=== PATIENT | male | born 1985 | race Caucasian/White ===

== ENCOUNTER 2017-02-06 17:47 | Emergency (ER) | payer SELFPAY ==
--- NOTE | ~2017-02-06 | ER ---
PATIENT'S NAME: TAMIR PERES [facility] AGE: 31 Y [address] ROOM: [place] [address] LOCATION: [facility] ADMIT DATE: 02/06/2017 ER/Outpatient Report DISCHARGE DATE: 02/06/2017 FAMILY PHYSICIAN: PHYSICIAN, NO ATTENDING PHYSICIAN: Farhan Rodriguez Time of Arrival: 1747 hours. Time of Evaluation: 1750 hours. CHIEF COMPLAINT: Chest discomfort. HISTORY OF PRESENT ILLNESS: This is a 31-year-old male, who presents to the ER. He states he has had some chest discomfort on the right side of his chest for about 3 hours and it worsened in the last couple of hours. He states that he has also been dealing with diarrhea and he has had approximately 10 stools today. He states that he has had no vomiting, but does feel a little bit nauseated. He states yesterday he felt sweaty, but he thought may be it was due to his stomach not feeling well. He states that he was recently admitted to the psych fowler at [facility] last week and they did do some medication adjustments. His girlfriend states that he does have a history of anxiety and he was dealing with some stressful situation prior to his chest discomfort as well so she thinks he is probably having an anxiety attack with this. The patient denies any recent antibiotics or recent travel. He denies any other problems at this time. MEDICATIONS: Please see medication list in nurse's notes. PAST MEDICAL HISTORY: 1. Hiatal hernia. 2. Fatty liver disease. 3. He has had a blockage in his large intestine. SOCIAL HISTORY: Smokes half pack a day. He has smoked for 20 years. He stopped doing street drugs and alcohol 3 years ago in which he did methamphetamines and marijuana. REVIEW OF SYSTEMS: A 10-point review of systems was completed and it was negative with the exception of those discussed in the HPI. PHYSICAL EXAMINATION: VITAL SIGNS: Weight 219.8 kg taken, blood pressure is 157/93, pulse 101, PATIENT'S NAME: TAMIR PERES [facility] AGE: 31 Y [address] ROOM: [place] [address] LOCATION: [facility] ADMIT DATE: 02/06/2017 ER/Outpatient Report DISCHARGE DATE: 02/06/2017 FAMILY PHYSICIAN: PHYSICIAN, NO ATTENDING PHYSICIAN: Farhan Rodriguez respirations 25, temperature 98.5 degrees tympanically, saturations 96% on room air. [place] Coma Score is 15. GENERAL: Alert, morbidly obese male, in no acute distress. HEENT: Head: Normocephalic. Eyes: Pupils are equal and reactive to light. He does display moist mucous membranes. LUNGS: Clear to auscultation bilaterally. No wheezes or crackles. Normal respiratory effort. HEART: Slightly tachycardic. Normal rhythm. No lifts, thrills, or murmurs. ABDOMEN: Soft, it is nontender. He has good bowel sounds throughout. No masses were palpated. EXTREMITIES: No clubbing, cyanosis, or edema. He has full range of motion of all limbs. SKIN: Warm, dry, and intact. LABORATORY DATA: CBC: White count is 10.8, hemoglobin is 15.5, platelets 189. AST is 9.2, INR is 1.0. CMS was unremarkable. Magnesium is 1.8, CPK is 112, CK-MB is 1.5. Troponin I is less than 0.040. Second set of enzymes, CPK is 95, CK-MB is 1.2. Troponin I is less than 0.040. EKG shows sinus tachycardia with a right bundle branch block. We did have EKGs sent from [facility] and it also shows that he has a right bundle branch block. Chest x-ray was negative for any infiltrate. IMPRESSION: 1. Chest discomfort. 2. Diarrhea. 3. Anxiety. 4. He had a headache while he was here. ASSESSMENT AND PLAN: We did monitor the patient here for quite some time. We did give him an aspirin upon his arrival. The patient rested comfortably and we did give him a GI cocktail and 30 mg of Toradol through his IV, which did improve his pain. The patient will be dismissed home. He needs to monitor his symptoms closely and continue to push fluids. I would like him to follow up with primary care physician or seek help at [facility] in [facility] for followup care in the next 2-3 days. He should return here to the emergency room if any of the symptoms worsen. The patient and the patient's understand and agree with care. CELESTINA LENNON PA-C FOR FARHAN RODRIGUEZ DO PATIENT'S NAME: TAMIR PERES [facility] AGE: 31 Y [address] ROOM: [place] [address] LOCATION: [facility] ADMIT DATE: 02/06/2017 ER/Outpatient Report DISCHARGE DATE: 02/06/2017 FAMILY PHYSICIAN: SAMUEL MARTINEZ ATTENDING PHYSICIAN: Farhan Rodriguez/kathia /[id number] d: t: 02/15/17 123, OUTPATIENT REPORT
[~2017-02-06 17:47] MED LIST: PROTONIX20 MG PO; VISTARIL25 MG PO; ZOLOFT50 MG PO
[2017-02-06 18:10] LABS: BASOPHIL % 0.4 %; EOSINOPHIL # 0.2 K/uL (0.0-0.5); EOSINOPHIL % 1.9 %; HEMATOCRIT 46.8 % (37.0-53.0); HEMOGLOBIN 15.5 g/dL (12.0-17.0); IMMATURE GRANULOCYTE % 0.4 %; LYMPHOCYTE # 0.9 K/uL (0.8-4.0); MCH 28.9 pg (27.0-34.0); MCHC 33.1 gm/dL (32.0-36.5); MCV 87.2 fl (83.0-98.0); MONOCYTE # 0.5 K/uL (0.0-1.0); MONOCYTE % 4.3 %; MPV 9.6 fl (9.4-12.4); NEUTROPHIL # (ANC) 9.2 K/uL (1.4-9.0); NRBC % 0 /100WBC (0-0.00); PLATELET COUNT 189 K/uL (150-450); RBC 5.37 M/uL (4.00-6.00); RDW-CV 14.3 % (11.9-14.6); WBC 10.8 K/uL (4.0-11.0)
[2017-02-06 18:20] LABS: PTT 27 SECONDS (25-32)
[2017-02-06 18:29] LABS: ALK PHOS 90 IU/L (33-138); ALT 52 IU/L (12-78); ANION GAP 12.2 (10.0-19.0); AST 24 IU/L (10-40); BLOOD UREA NITROGEN 16 mg/dL (6-24); CALCIUM 8.9 mg/dL (8.5-10.5); CHLORIDE 105 mMol/L (96-110); CO2 28 mMol/L (22-32); CPK 112 IU/L (35-332); CREATININE 0.9 mg/dL (0.6-1.3); ESTIMATED GFR (MDRD EQUATION) > 60; MAGNESIUM 1.8 mg/dL (1.3-2.6); POTASSIUM 4.2 mMol/L (3.7-5.1); SODIUM 141 mMol/L (135-145); TOTAL PROTEIN 8.2 g/dL (6.0-8.4)
[2017-02-06 18:30] LABS: TOTAL BILIRUBIN 0.4 mg/dL (0.0-1.5)
[2017-02-06 20:17] LABS: CPK 95 IU/L (35-332)
== END 2017-02-06 20:35 | disposition disaster alternative care site (69) ==
LOC: GMED 17:47
PROVIDERS: Physician Assistant Medical
DX: R07.89 Other chest pain (principal); F41.9 Anxiety disorder, unspecified; R19.7 Diarrhea, unspecified; R51 Headache; F17.210 Nicotine dependence, cigarettes, uncomplicated
CPT/HCPCS: J1885; J2405; J7030

== ENCOUNTER 2017-02-25 16:15 | Emergency (ER) | payer SELFPAY ==
--- NOTE | ~2017-02-25 | ER ---
PATIENT'S NAME: TAMIR PERES [facility] AGE: 31 Y [address] ROOM: [place] [address] LOCATION: [facility] ADMIT DATE: 02/25/2017 ER/Outpatient Report DISCHARGE DATE: 02/25/2017 FAMILY PHYSICIAN: PHYSICIAN, NO ATTENDING PHYSICIAN: Collins Wild Time of Arrival: 1620 hours. Time of Exam: 1628 hours. CHIEF COMPLAINT: Lightheaded and dizzy. 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 He was afraid he was going to pass out. He denies having any chest pain. Has not had shortness of breath. Not nauseated, no vomiting. States he has generalized headache. States he has been drinking fluids. Did eat today. ALLERGIES: WELLBUTRIN AND SEROQUEL. CURRENT MEDICATIONS: On his chart and reviewed by me. PAST MEDICAL HISTORY: Includes PTSD, depression, asthma, and fatty liver. PAST SURGERIES: None. SOCIAL HISTORY: Denies use of tobacco, drugs, or alcohol. REVIEW OF SYSTEMS: All negative other than those mentioned in the HPI. PHYSICAL EXAMINATION: VITAL SIGNS: He weighed 221.7 kg. Blood pressure is 150/91, pulse of 95, respirations 18, temperature of 97.5, and O2 saturation is 95% on room air. GENERAL: He is awake, alert, and oriented x4. SKIN: [place], warm, and dry. LUNGS: Respirations are even and nonlabored. Lung sounds are clear throughout. HEART: Regular rate and rhythm. PATIENT'S NAME: TAMIR PERES [facility] AGE: 31 Y [address] ROOM: [place] [address] LOCATION: [facility] ADMIT DATE: 02/25/2017 ER/Outpatient Report DISCHARGE DATE: 02/25/2017 FAMILY PHYSICIAN: PHYSICIAN, NO ATTENDING PHYSICIAN: Collins Wild NEURO: The patient walked in with a steady even gait. EMERGENCY DEPARTMENT COURSE: Saline lock was initiated. Fluids of normal saline were started at a wide- open rate. CBC is within normal limits. Chem panel is within normal limits. The patient states he is feeling better after the fluids. IMPRESSION: Mild dehydration. PLAN: Home. Rest. Fluids. Tylenol or ibuprofen as needed for fever or discomfort. Follow up with primary provider if symptoms persist or worsen. He verbalized understanding. LUDMILA BARTON APRN FOR MD ESTEBAN TOWNSEND/kathia /[id number] d: 02/26/17 0049 t: 03/04/17 0647, OUTPATIENT REPORT
[2017-02-25 16:54] LABS: BASOPHIL % 0.4 %; EOSINOPHIL # 0.2 K/uL (0.0-0.5); EOSINOPHIL % 1.9 %; HEMATOCRIT 39.6 % (37.0-53.0); HEMOGLOBIN 13.1 g/dL (12.0-17.0); IMMATURE GRANULOCYTE % 0.4 %; LYMPHOCYTE # 1.6 K/uL (0.8-4.0); LYMPHOCYTE % 15.6 %; MCH 28.8 pg (27.0-34.0); MCHC 33.1 gm/dL (32.0-36.5); MONOCYTE # 0.7 K/uL (0.0-1.0); MONOCYTE % 6.7 %; MPV 10.1 fl (9.4-12.4); NEUTROPHIL # (ANC) 7.5 K/uL (1.4-9.0); NRBC % 0.2 /100WBC (0-0.00); PLATELET COUNT 182 K/uL (150-450); RBC 4.55 M/uL (4.00-6.00); RDW-CV 13.7 % (11.9-14.6)
[2017-02-25 17:20] LABS: ALBUMIN 3.4 gm/dL (3.5-5.0); ALK PHOS 76 IU/L (33-138); ANION GAP 7.7 (10.0-19.0); AST 28 IU/L (10-40); BLOOD UREA NITROGEN 15 mg/dL (6-24); CALCIUM 8.4 mg/dL (8.5-10.5); CHLORIDE 108 mMol/L (96-110); CO2 26 mMol/L (22-32); CREATININE 0.9 mg/dL (0.6-1.3); ESTIMATED GFR (MDRD EQUATION) > 60; POTASSIUM 3.7 mMol/L (3.7-5.1); SODIUM 138 mMol/L (135-145); TOTAL PROTEIN 6.8 g/dL (6.0-8.4)
[2017-02-25 17:21] LABS: ALT 50 IU/L (12-78); TOTAL BILIRUBIN 0.2 mg/dL (0.0-1.5)
== END 2017-02-25 17:50 | disposition disaster alternative care site (69) ==
LOC: GMED 16:15
PROVIDERS: Nurse Practitioner Family
DX: E86.0 Dehydration (principal); F32.9 Major depressive disorder, single episode, unspecified; J45.909 Unspecified asthma, uncomplicated; Z88.8 Allergy status to other drugs, medicaments and biological substances
CPT/HCPCS: J7030

== ENCOUNTER 2017-03-20 13:31 | Emergency (ER) | payer SELFPAY ==
--- NOTE | ~2017-03-20 | ER ---
PATIENT'S NAME: TAMIR PERES [facility] AGE: 31 Y [address] ROOM: [place] [address] LOCATION: [facility] ADMIT DATE: 03/20/2017 ER/Outpatient Report DISCHARGE DATE: 03/20/2017 FAMILY PHYSICIAN: Physician, Unknown ATTENDING PHYSICIAN: Shila Pfeiffer Admission date and time documented in the medical record. I saw the patient at 1340 hours. CHIEF COMPLAINT: Right-sided abdominal pain. HISTORY OF PRESENT ILLNESS: This patient is a 31-year-old male who is brought to the emergency room by paramedics via ambulance for evaluation of right-sided abdominal pain. The patient was down at the [facility] for a court date, developed this pain, brought to the emergency room for evaluation. The patient was given some fentanyl and Zofran en route per paramedics. On arrival, the patient is awake, alert, responsive. He had some right-sided abdominal pain, starting at his right upper quadrant, radiating down into his right lower quadrant. No shortness of breath or chest pain. No headache; eyes, ears, nose, throat, neck, or spine pain. No recent colds, coughs, flus, fever, chills, or sweats. No fall or trauma. No lightheadedness, dizziness, syncope, or near syncope. Some nausea, but no vomiting. No incontinence of stool or urine. No joint or muscle swelling, redness, or pain. No skin eruptions or rash. Does have a history of posttraumatic stress disorder and major depressive disorder. No neuro issues or endocrine issues. HOME MEDICATIONS: See attached medication list. ALLERGIES: WELLBUTRIN AND SEROQUEL. SOCIAL HISTORY: The patient smokes a half pack of cigarettes a day. Nondrinker. Does have a past history of illicit drug use, mainly of methamphetamine and marijuana and alcohol abuse. SIGNIFICANT PAST MEDICAL HISTORY: Posttraumatic stress disorder, major depressive disorder, fatty liver, hiatal hernia, tobacco abuse, and remote illicit drug and alcohol abuse. OPERATIONS: None. PATIENT'S NAME: TAMIR PERES [facility] AGE: 31 Y [address] ROOM: [place] [address] LOCATION: [facility] ADMIT DATE: 03/20/2017 ER/Outpatient Report DISCHARGE DATE: 03/20/2017 FAMILY PHYSICIAN: Physician, Unknown ATTENDING PHYSICIAN: Shila Pfeiffer REVIEW OF SYSTEMS: All systems are reviewed by me are negative with the exception of those discussed in the history of present illness. PHYSICAL EXAMINATION: VITAL SIGNS: Temperature 98 tympanic, pulse 88, respirations 22, blood pressure 114/65, and O2 saturation on room air is 96%. HEAD: Normocephalic. EYES, EARS, NOSE, THROAT: Clear. Mucous membranes moist. Teeth, jaw intact. NECK: No nuchal rigidity. No thyromegaly or cervical adenopathy. LUNGS: Clear. Good air flow. No rales, rhonchi, or wheezes. HEART: Regular. Pulses are palpable. ABDOMEN: Large obese abdomen. Soft, nondistended, and nontender. Active bowel tones. No organomegaly or abnormal masses palpable. No CVA tenderness. EXTREMITIES: Without peripheral edema, cyanosis, or deformity. NEUROVASCULAR: Intact. SKIN: Clear. No skin eruptions or rash. LABORATORY DATA: White count was 9500, 71 segs, 19 lymphs, 7 monos, 2 eos, 1 baso; hemoglobin is 14.5; hematocrit 43.9; and platelet count is 187,000. PTT is 27, pro-time is 9.9 with an INR 0.94. Urine showed negative whites, 0-2 reds, 0-2 epithelial cells, moderate bacteria per high-powered field, negative nitrites on dipstick. Lactate was 0.9. CMS was normal except for an elevated glucose of 101. Amylase and lipase were normal. CPK was 133. Nivcq-dy-eqye cardiac enzymes were normal. CRP was 1.55. IMPRESSION: Stress-related abdominal pain. PLAN: The patient dismissed home. Observation. Activity as tolerated. Continue present home medications and care. Follow up with personal physician as needed. Discussion ensued with the patient concerning my findings and recommendations, he understands. SHILA PFEIFFER MD SDS/modl PATIENT'S NAME: TAMIR PERES [facility] AGE: 31 Y [address] ROOM: [place], [place] [address] LOCATION: [facility] ADMIT DATE: 03/20/2017 ER/Outpatient Report DISCHARGE DATE: 03/20/2017 FAMILY PHYSICIAN: Kinjal Antonio ATTENDING PHYSICIAN: Shila Pfeiffer /[id number] d: 03/20/172201 t: 03/21/17 0617, OUTPATIENT REPORT
[2017-03-20 14:01] LABS: BASOPHIL # 0.1 K/uL (0.0-0.2); BASOPHIL % 0.5 %; EOSINOPHIL # 0.2 K/uL (0.0-0.5); EOSINOPHIL % 1.9 %; HEMATOCRIT 43.9 % (37.0-53.0); HEMOGLOBIN 14.5 g/dL (12.0-17.0); IMMATURE GRANULOCYTE # 0.1 K/uL (0.0-0.3); IMMATURE GRANULOCYTE % 0.6 %; LYMPHOCYTE # 1.8 K/uL (0.8-4.0); LYMPHOCYTE % 19.1 %; MCH 28.4 pg (27.0-34.0); MCV 86.1 fl (83.0-98.0); MONOCYTE # 0.7 K/uL (0.0-1.0); MONOCYTE % 7.1 %; NEUTROPHIL # (ANC) 6.7 K/uL (1.4-9.0); NEUTROPHIL % 70.8 %; NRBC % 0 /100WBC (0-0.00); PLATELET COUNT 187 K/uL (150-450); WBC 9.5 K/uL (4.0-11.0)
[2017-03-20 14:12] LABS: INR - (THERAPEUTIC) 0.94 (0.92-1.07); PROTIME 9.9 SECONDS (9.8-11.4); PTT 27 SECONDS (25-32)
[2017-03-20 14:19] LABS: ALBUMIN 3.8 gm/dL (3.5-5.0); ALK PHOS 86 IU/L (33-138); ALT 51 IU/L (12-78); ANION GAP 9.2 (10.0-19.0); AST 23 IU/L (10-40); BLOOD UREA NITROGEN 14 mg/dL (6-24); CALCIUM 8.9 mg/dL (8.5-10.5); CHLORIDE 105 mMol/L (96-110); CO2 29 mMol/L (22-32); CPK 133 IU/L (35-332); CREATININE 0.8 mg/dL (0.6-1.3); ESTIMATED GFR (MDRD EQUATION) > 60; POTASSIUM 4.2 mMol/L (3.7-5.1); SODIUM 139 mMol/L (135-145); TOTAL PROTEIN 7.5 g/dL (6.0-8.4)
[2017-03-20 14:21] LABS: TOTAL BILIRUBIN 0.3 mg/dL (0.0-1.5)
[2017-03-20 14:25] LABS: BILIRUBIN URINE NEGATIVE (NEGATIVE); BLOOD URINE 10 /UL (NEGATIVE); COLOR URINE YELLOW (YELLOW); GLUCOSE URINE NEGATIVE (NEGATIVE); KETONE URINE NEGATIVE (NEGATIVE); LEUKOCYTES URINE NEGATIVE /UL (NEGATIVE); NITRITE URINE NEGATIVE (NEGATIVE); PROTEIN URINE 30 mg/dL (NEGATIVE); TURBIDITY URINE CLEAR (CLEAR); UROBILINOGEN URINE NORMAL (NORMAL)
[2017-03-20 14:33] LABS: BACTERIA URINE MODERATE (NEGATIVE); EPITHELIAL URINE 0-2 #/HPF (NEGATIVE); RBC URINE 0-2 #/HPF (NEGATIVE); WBC URINE NEGATIVE #/HPF (NEGATIVE)
== END 2017-03-20 15:03 | disposition disaster alternative care site (69) ==
LOC: GMED 13:31
PROVIDERS: Emergency Medicine
DX: R10.31 Right lower quadrant pain (principal); F43.9 Reaction to severe stress, unspecified; F17.210 Nicotine dependence, cigarettes, uncomplicated; F32.9 Major depressive disorder, single episode, unspecified; F10.10 Alcohol abuse, uncomplicated; Z88.8 Allergy status to other drugs, medicaments and biological substances; Z79.899 Other long term (current) drug therapy

== ENCOUNTER 2017-05-20 08:00 | Emergency (ER) | payer SELFPAY ==
--- NOTE | ~2017-05-20 | ER ---
PATIENT'S NAME: TAMIR PERES [facility] AGE: 31 Y [address] ROOM: [place] [address] LOCATION: [facility] ADMIT DATE: 05/20/2017 ER/Outpatient Report DISCHARGE DATE: 05/20/2017 FAMILY PHYSICIAN: PHYSICIAN, NO ATTENDING PHYSICIAN: Andrews Rdoriguez TIME OF ARRIVAL: 0800 hours. CHIEF COMPLAINT: Chest pain on bilateral sides underneath his armpits. HISTORY OF PRESENT ILLNESS: The patient is a 31-year-old male who presents to the emergency department today with a chief complaint of chest pain. It is on both sides. It starts kind of in his armpit and radiates down into his hips. 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 He felt dizzy with this. He denies any fevers. Does have some chills. Does have some nausea. No vomiting. Pain is currently 5/10 in severity. Denies any shortness of breath. No cough. It is a stabbing-type pain. PAST MEDICAL HISTORY: Irregular heartbeat and hiatal hernia. PAST SURGICAL HISTORY: None. SOCIAL HISTORY: The patient smokes half pack per day for 18 years. Denies any alcohol or illicit drug use. ALLERGIES: WELLBUTRIN. MEDICATIONS: None. PRIMARY CARE DOCTOR: None. REVIEW OF SYSTEMS: All systems are reviewed by myself and are negative with the exception of those discussed in the HPI and Past Medical History. PHYSICAL EXAMINATION: PATIENT'S NAME: TAMIR PERES [facility] AGE: 31 Y [address] ROOM: [place] [address] LOCATION: [facility] ADMIT DATE: 05/20/2017 ER/Outpatient Report DISCHARGE DATE: 05/20/2017 FAMILY PHYSICIAN: PHYSICIAN, NO ATTENDING PHYSICIAN: Andrews Rodriguez VITAL SIGNS: Weight 231 kg. Blood pressure 159/89, pulse 96, respiratory rate 22, temperature 98.4, and oxygen saturation 94% on room air. GENERAL: The patient is a 31-year-old male who appears stated age, in no acute distress. He is morbidly obese. HEENT: Normocephalic, atraumatic. Pupils are equal, round, and reactive to light. Extraocular motions are intact. Nares are patent bilaterally. TMs are clear. Oropharynx is clear. NECK: Supple. CARDIOVASCULAR: Regular rate and rhythm. No murmurs, rubs, or gallops. LUNGS: Clear to auscultation bilaterally. No wheezes, rales, or rhonchi. ABDOMEN: Soft, nontender, and nondistended. No rebound, rigidity, or guarding. MUSCULOSKELETAL: The patient has tenderness to palpation along the mid axillary line bilaterally along the ribs to palpation. He moves all 4 extremities and ambulates with a steady gait. SKIN: Warm and dry. There are no rashes or lesions noted. LABORATORY AND X-RAY DATA: EKG is obtained, is interpreted by myself, and shows sinus rhythm with a rate of 93, right bundle-branch block with normal axis and normal interval. No ST elevation or ST depression. Nonspecific T-waves. Chest x-ray shows no acute process. CBC is normal. CMP is normal. LFTs normal. Coags are normal. Magnesium is normal. D-dimer is normal. Cardiac enzymes are normal. ProBNP is normal. IMPRESSION: 1. Bilateral chest pain, atypical. 2. Suspected obstructive sleep apnea. 3. Morbid obesity. 4. Initial visit. EMERGENCY DEPARTMENT COURSE: The patient was brought back to the examination room. Seen and evaluated by myself. IV was established. Laboratory analysis, imaging, and EKG were obtained as described above. The patient was given 60 mg of Toradol IM with improvement in the patient's symptoms. While the patient is here, his oxygen saturations, while the patient is sleeping, do drop into the upper 80s to low 90s. With his morbid obesity, I do suspect he has some obstructive sleep apnea. He even may have some pulmonary hypertension with the right bundle- branch block. I have stressed with him the importance of obtaining a primary care provider who can evaluate this. I have discussed different primary care doctor options here in the [place] area. I have asked that he call today to set up an appointment to be seen. I have discussed return to care instructions including worsening symptoms or other concerns, to return to the emergency department as soon as possible. The patient is agreeable. He is PATIENT'S NAME: TAMIR PERES [facility] AGE: 31 Y [address] ROOM: [place] [address] LOCATION: [facility] ADMIT DATE: 05/20/2017 ER/Outpatient Report DISCHARGE DATE: 05/20/2017 FAMILY PHYSICIAN: PHYSICIAN, NO ATTENDING PHYSICIAN: Andrews Rodriguez without further questions at this time. DISPOSITION: The patient is discharged to home in good condition. DO JUAN ALBERTO SHABAZZ/augustl /[id number] d: 05/20/17 1123 t: 05/20/17 1619, OUTPATIENT REPORT
[2017-05-20 08:43] LABS: BASOPHIL # 0.1 K/uL (0.0-0.2); BASOPHIL % 0.6 %; EOSINOPHIL # 0.2 K/uL (0.0-0.5); EOSINOPHIL % 2.5 %; HEMATOCRIT 39.8 % (37.0-53.0); HEMOGLOBIN 13.1 g/dL (12.0-17.0); IMMATURE GRANULOCYTE # 0.1 K/uL (0.0-0.3); IMMATURE GRANULOCYTE % 0.7 %; LYMPHOCYTE # 1.5 K/uL (0.8-4.0); MCH 28.4 pg (27.0-34.0); MCHC 32.9 gm/dL (32.0-36.5); MCV 86.3 fl (83.0-98.0); MONOCYTE # 0.7 K/uL (0.0-1.0); MONOCYTE % 7.4 %; MPV 9.3 fl (9.4-12.4); NEUTROPHIL # (ANC) 6.5 K/uL (1.4-9.0); NEUTROPHIL % 71.8 %; NRBC % 0 /100WBC (0-0.00); PLATELET COUNT 180 K/uL (150-450); RBC 4.61 M/uL (4.00-6.00); RDW-CV 14.1 % (11.9-14.6)
[2017-05-20 08:57] LABS: INR - (THERAPEUTIC) 0.93 (0.92-1.07); PROTIME 9.8 SECONDS (9.8-11.4); PTT 27 SECONDS (25-32)
[2017-05-20 09:08] LABS: ALBUMIN 3.5 gm/dL (3.5-5.0); ALK PHOS 79 IU/L (33-138); ALT 47 IU/L (12-78); ANION GAP 8.9 (10.0-19.0); AST 23 IU/L (10-40); BLOOD UREA NITROGEN 14 mg/dL (6-24); CALCIUM 8.7 mg/dL (8.5-10.5); CHLORIDE 106 mMol/L (96-110); CO2 28 mMol/L (22-32); CPK 223 IU/L (35-332); CREATININE 0.8 mg/dL (0.6-1.3); ESTIMATED GFR (MDRD EQUATION) > 60; MAGNESIUM 1.9 mg/dL (1.8-2.6); POTASSIUM 3.9 mMol/L (3.7-5.1); SODIUM 139 mMol/L (135-145); TOTAL BILIRUBIN 0.3 mg/dL (0.0-1.5); TOTAL PROTEIN 7.1 g/dL (6.0-8.4)
== END 2017-05-20 09:35 | disposition disaster alternative care site (69) ==
LOC: GMED 08:00
PROVIDERS: Emergency Medicine
DX: R07.89 Other chest pain (principal); E66.01 Morbid (severe) obesity due to excess calories; F17.210 Nicotine dependence, cigarettes, uncomplicated; Z88.8 Allergy status to other drugs, medicaments and biological substances; Z87.19 Personal history of other diseases of the digestive system
CPT/HCPCS: J1885

== ENCOUNTER 2017-07-21 18:52 | Emergency (ER) | payer SELFPAY ==
--- NOTE | ~2017-07-21 | ER ---
PATIENT'S NAME: TAMIR PERES [facility] AGE: 31 Y [address] ROOM: [place] [address] LOCATION: ED ADMIT DATE: 07/21/2017 ER/Outpatient Report DISCHARGE DATE: 07/21/2017 FAMILY PHYSICIAN: Dinesh Tubbs MD ATTENDING PHYSICIAN: Young Pfeiffer TIME SEEN: 1920 hours. HISTORY OF PRESENT ILLNESS: The patient is a 31-year-old male, presents complaining of lateral right heel pain, said it started about 2 months ago, was seen in the emergency room month or so ago and was put on Keflex. 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 The patient said he does wear a boot at work. Denies fevers or chills. ALLERGIES: WELLBUTRIN, SEROQUEL, VISTARIL. PAST MEDICAL HISTORY: Includes sleep apnea, hiatal hernia, morbid obesity, has a history of fatty liver disease, and history of some colon problems. SOCIAL HISTORY: Smoker, half a pack a day. No alcohol. REVIEW OF SYSTEMS: GENERAL: Denies fever or chills. HEAD/EENT: Negative. RESPIRATORY: No shortness of breath or cough. GASTROINTESTINAL: Has had some loose stools over the last 3 days, nonwatery. SKIN/MUSCULOSKELETAL: He has had a callus on the medial aspect of his left heel for quite some time, it has become painful and swollen. PHYSICAL EXAMINATION: VITAL SIGNS: Blood pressure 145/63, his temp is 98.3, his respiratory rate 16, pulse 96, his O2 sats 92%. GENERAL APPEARANCE: White male. He is obese and oriented. HEAD And EENT: Sclerae appeared clear. His buccal membranes were moist. ABDOMEN: Quite obese but soft. Bowel sounds active. EXTREMITIES: Exam of his right heel shows a fairly large blister on the medial heel. Appears slightly fluctuant. There was no significant redness but it was tender. ASSESSMENT: PATIENT'S NAME: TAMIR PERES [facility] AGE: 31 Y [address] ROOM: [place] [address] LOCATION: ED ADMIT DATE: 07/21/2017 ER/Outpatient Report DISCHARGE DATE: 07/21/2017 FAMILY PHYSICIAN: Dinesh Tubbs MD ATTENDING PHYSICIAN: Young Pfeiffer 1. Large blister, left heel, possible cellulitis. 2. Excessive weight. 3. History of sleep apnea. 4. History of fatty liver. 5. History of hiatal hernia. PLAN: We did go ahead and put him on Keflex 500 q.i.d. Continue his hot soaks that he has been doing at home. Avoid wearing boot that cause any rubbing or friction to his heel. Sandals at work. 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 CYDNEY PONCE FOR YOUNG PFEIFFER MD SWJ/modl /[id number] d: 07/22/17 0012 t: 07/29/17 1217, OUTPATIENT REPORT
== END 2017-07-21 19:42 | disposition disaster alternative care site (69) ==
LOC: GMED 18:52
DX: S90.821A Blister (nonthermal), right foot, initial encounter (principal); G47.30 Sleep apnea, unspecified; E66.09 Other obesity due to excess calories; K44.9 Diaphragmatic hernia without obstruction or gangrene; K76.0 Fatty (change of) liver, not elsewhere classified; F17.210 Nicotine dependence, cigarettes, uncomplicated; Z88.8 Allergy status to other drugs, medicaments and biological substances; X58.XXXA Exposure to other specified factors, initial encounter